=== PATIENT | male | born 1985 | race Caucasian/White ===

== ENCOUNTER → 2017-04-06 09:53 | Outpatient (CLI) | payer OTHER, SELFPAY ==
[2017-04-06 12:56] LABS: Anion Gap 9 (5-15); BUN 17 mg/dL (7-18); BUN/Creat Ratio 14.8 RATIO (10-20); Calcium,Total 9.4 mg/dL (8.5-10.1); Chloride 103 mmol/L (98-107); Cholesterol 116 mg/dL (200); Creatinine, Serum 1.15 mg/dL (0.70-1.30); EST Glomerular Filtration Rate 78 mL/min (>60); Est Glom Filt Rate - Afr Amer 95 mL/min (>60); Glucose 85 mg/dL (74-106); High Density Lipoprotein 47 mg/dL; Potassium 3.7 mmol/L (3.5-5.1); Sodium Level 141 mmol/L (136-145); Triglycerides 55 mg/dL; Very Low Density Lipoprotein 11 mg/dL (5-40)
== END ==
PROVIDERS: Family Provider Family Medicine; PCP Family Medicine; Visit Provider Internal Medicine
DX: Z00.00 Encounter for general adult medical examination without abnormal findings (principal)
CPT/HCPCS: 36415; 80048; 80061

== ENCOUNTER 2021-05-15 17:00 | Outpatient (CLI) | payer OTHER, SELFPAY ==
--- NOTE | 2021-05-15 17:03 | CT_ITS ---
STUDY: CT SOFT TISSUE NECK WITH CONTRAST REASON FOR EXAM: Male, 35 years old. 2 areas, right lateral neck and right lower mandible -- cervical lymphadenopathy RADIATION DOSAGE (If Supplied By Facility): CTDIvol = ( 16.62 ) mGy, DLP = ( 489.90 ) mGycm TECHNIQUE: The patient was scanned in a multi-detector CT scanner. High resolution transaxial imaging was performed following intravenous administration of IV 75mL Isovue-370. Sagittal and coronal images were reconstructed. Individualized dose optimization techniques were used for this CT. COMPARISON: None. FINDINGS: Normal bilateral parotid glands. Normal bilateral drawing frame tender spaces. Normal bilateral parapharyngeal spaces. Normal bilateral carotid spaces. Normal bilateral sublingual and submandibular glands and spaces. Normal visualized nasopharynx. Normal retropharyngeal space. Normal perivertebral space. Normal visualized bilateral faucial tonsils. The visualized tongue, tongue base and oropharynx are normal. The visualized cervical lymph nodes (levels I-) are within normal size limits, and maintain normal morphology. There is no demonstrated solid or cystic mass lesion. There is no abnormal contrast enhancement. Normal epiglottis, bilateral vallecula and hypopharynx. The pre-epiglottic and paraglottic adipose spaces are normal. Normal visualized bilateral piriform sinuses, aryepiglottic folds, vocal cords, and arytenoid-cricoid articulations. Normal subglottic trachea. Normal bilateral lobes of the thyroid gland. Normal visualized pulmonary apices. Normal visualized paranasal sinuses. Normal visualized cervical spine. CT/Soft Tissue Neck WITH Contrast IMPRESSION: Normal enhanced CT examination of the soft tissues of the neck. Electronically Signed: Rome Willingham MD at 10:54 EDT ,
== END 2021-05-15 23:59 | disposition home or self-care (01) ==
PROVIDERS: PCP Family Medicine; Referring Provider Nurse Practitioner Family; Visit Provider Nurse Practitioner Family
DX: R22.1 Localized swelling, mass and lump, neck (principal)
CPT/HCPCS: 70491; Q9967

== ENCOUNTER 2021-05-26 10:28 | Outpatient (CLI) | payer OTHER, SELFPAY ==
--- NOTE | 2021-05-26 10:35 | US_ITS ---
INDICATION: Mass in right lower mandible -- CERVICAL LYMPHODENOPATHY -- LOCALIZED SWELLING OF RT NECK EXAMINATION: Ultrasound US Head/Neck Soft Tissue TECHNIQUE: Beckwith scale and color doppler imaging was performed of the neck. COMPARISON: None. FINDINGS: Grayscale and color flow sonographic evaluation of the neck was performed. Initially sonographic evaluation of the area of palpable lump was performed this demonstrated a ovoid well-circumscribed area of homogenous echogenicity measuring 1.2 x 0.4 x 1.1 cm, this could represent a lipoma or an atypical lymph node. Two lymph nodes visualized in the right neck demonstrating unremarkable size and shape unremarkable configuration with fatty hilum, normal lymph nodes measuring 1.3 x 0.6 x 0.3 cm and 1.7 x 0.8 x 0.4 cm. Two lymph nodes visualized in the left neck demonstrating unremarkable size and shape unremarkable configuration with fatty hilum, normal lymph nodes measuring 1.3 x 0.8 x 0.4 cm and 1.4 x 0.8 x 0.3 cm. US/Head/Neck Soft Tissue IMPRESSION: At location of the palpable lump ovoid 1.2 cm area either representing lipoma or an typical lymph node. Normal appearing neck lymph nodes Electronically Signed: Waldo Allison MD at 12:46 EDT ,
== END 2021-05-26 23:59 | disposition home or self-care (01) ==
PROVIDERS: PCP Family Medicine; Referring Provider Nurse Practitioner Family; Visit Provider Nurse Practitioner Family
DX: R22.1 Localized swelling, mass and lump, neck (principal); R59.0 Localized enlarged lymph nodes
CPT/HCPCS: 76536

== ENCOUNTER → 2021-09-09 | Outpatient (CLI) | payer OTHER, SELFPAY ==
--- NOTE | 2021-09-09 10:45 | MASS_PTH ---
PATIENT: YOLANDA GRANADO LOC: [facility] U#:[id number] AGE/SX: 35/M ROOM: RE09/09/[address]: Dr. Vladimir Voss MD : 1985 BED: DIS: 09/09/2021 SPEC #: [id number] RECD: 09/09/21 15:00 STATUS: JEROME WALKER #: [id number] MAKSIM: 09/09/21 10:[address]: Vladimir Voss DEPT: SURGICAL PATHOLOGY RECD BY: Camila Rivero ENTERED: 09/10/21 07:09 SP TYPE: Mass OTHR DR: Dr. Silvio Alarcon, DO [facility] Tissues: Skin of face, NOS Procedures: Surgery Specimen Level IV HEADER OPERATION: Excision right facial mass PRE-OP DIAGNOSIS: Right facial mass TISSUE SUBMITTED: Right facial mass MICROSCOPIC DIAGNOSIS Right facial mass, excisional biopsy: Mature adipose tissue, consistent with lipoma. SJ:pavel 09/11/2021 MICROSCOPIC DESCRIPTION Slides are reviewed. GROSS DESCRIPTION Received in fixative is one container labeled with the patient's name and designated right neck mass. The specimen consists of an irregular fragment of yellow-pink fibrofatty tissue measuring 2.6 x 1.5 x 0.9 cm. The specimen is inked and serially sectioned to reveal homogenous yellow cut surfaces. The specimen is totally submitted in two cassettes. / URMILA:pavel 09/10/2021 TC:1 CPT: 79643
== END | disposition home or self-care (01) ==
LOC: LABSPEC 15:31
PROVIDERS: PCP Family Medicine; Visit Provider Otolaryngology
DX: R22.0 Localized swelling, mass and lump, head (principal)
CPT/HCPCS: 88305

== ENCOUNTER → 2021-12-03 | Outpatient (CLI) | payer OTHER, SELFPAY ==
[2021-12-03 12:26] LABS: Absolute Lymphocyte Count 1.58 X10^3/uL (0.83-4.51); Absolute Neutrophil Count 2.2 X10^3/uL (2.0-7.7); Basophil# 0.02 X10^3/uL; Basophil% 0.4 % (0-1); Eosinophil# 0.11 X10^3/uL; Eosinophils% 2.4 % (0-5); Hematocrit 42.4 % (40-54); Lymphocyte # 1.58 X10^3/ul (0.83-4.51); Lymphocyte % 34.4 % (19-41); Mean Corp Hgb Conc 35.4 g/dL (32-36); Mean Corpuscular Volume 90.4 fL (80-94); Mean Platelet Vol. 10.6 fl (6.2-12.0); Monocyte# 0.72 X10^3/uL; Monocyte% 15.7 % (0-10); NRBC Flagged by Analyzer 0 % (0-5); Neutrophil # 2.15 X10^3/uL (2.7-7.7); Neutrophil % 46.9 % (47-70); Platelet Count 216 K/mm3 (150-450); RBC Distribution Width CV 11.9 % (11.6-14.6); RBC Distribution Width SD 39.3 fl (35.1-43.9); Red Blood Count 4.69 M/mm3 (4.6-6.2); White Blood Count 4.6 K/mm3 (4.4-11.0)
[2021-12-03 12:39] LABS: ALB/GLOB Ratio 1.2 RATIO (0.9-2.4); AST(SGOT) 21 U/L (15-37); Alanine Aminotransfer ALT/SGPT 24 U/L (16-61); Albumin, Serum 3.9 g/dL (3.2-5.0); Alkaline Phosphatase 57 U/L (45-117); Anion Gap 6 (5-15); BUN 26 mg/dL (7-18); BUN/Creat Ratio 20.8 RATIO (10-20); Calcium,Total 9.4 mg/dL (8.5-10.1); Chloride 106 mmol/L (98-107); Cholesterol 166 mg/dL (200); Creatinine, Serum 1.25 mg/dL (0.70-1.30); EST Glomerular Filtration Rate 69 mL/min (>60); Est Glom Filt Rate - Afr Amer 84 mL/min (>60); Globulin 3.2 g/dL (2.2-4.2); Glucose 104 mg/dL (74-106); High Density Lipoprotein 50 mg/dL; Potassium 4.3 mmol/L (3.5-5.1); Protein, Total 7.1 g/dL (6.4-8.2); Sodium Level 140 mmol/L (136-145); Triglycerides 68 mg/dL; Very Low Density Lipoprotein 14 mg/dL (5-40)
== END | disposition home or self-care (01) ==
LOC: BIMLAB 09:43
PROVIDERS: PCP Family Medicine; Referring Provider Nurse Practitioner Family; Visit Provider Nurse Practitioner Family
DX: Z00.00 Encounter for general adult medical examination without abnormal findings (principal)
CPT/HCPCS: 36415; 80053; 80061; 84443; 85025

== ENCOUNTER → 2022-05-28 | Outpatient (CLI) | payer OTHER, SELFPAY ==
[2022-05-28 12:08] LABS: Absolute Lymphocyte Count 1.92 X10^3/uL (0.83-4.51); Absolute Neutrophil Count 2.6 X10^3/uL (2.0-7.7); Basophil# 0.02 X10^3/uL; Basophil% 0.4 % (0-1); Eosinophil# 0.12 X10^3/uL; Eosinophils% 2.2 % (0-5); Hematocrit 40.7 % (40-54); Hemoglobin 13.9 g/dL (13.0-16.5); Lymphocyte # 1.92 X10^3/ul (0.83-4.51); Lymphocyte % 35.8 % (19-41); Mean Corp Hgb Conc 34.2 g/dL (32-36); Mean Corpuscular Hgb 31.2 pg (27.0-32.0); Mean Corpuscular Volume 91.3 fL (80-94); Mean Platelet Vol. 10.6 fl (6.2-12.0); Monocyte# 0.65 X10^3/uL; Monocyte% 12.1 % (0-10); NRBC Flagged by Analyzer 0 % (0-5); Neutrophil # 2.64 X10^3/uL (2.7-7.7); Neutrophil % 49.3 % (47-70); Platelet Count 217 K/mm3 (150-450); RBC Distribution Width CV 12.2 % (11.6-14.6); RBC Distribution Width SD 40.7 fl (35.1-43.9); Red Blood Count 4.46 M/mm3 (4.6-6.2); White Blood Count 5.4 K/mm3 (4.4-11.0)
[2022-05-28 12:24] LABS: Vitamin B12 1422 pg/mL (211-911); Vitamin D,25 Hydroxy 39.5 ng/mL
[2022-05-28 12:35] LABS: ALB/GLOB Ratio 1.4 RATIO (0.9-2.4); AST(SGOT) 29 U/L (15-37); Alanine Aminotransfer ALT/SGPT 27 U/L (16-61); Alkaline Phosphatase 49 U/L (45-117); Anion Gap 0 (5-15); BUN 25 mg/dL (7-18); BUN/Creat Ratio 20.7 RATIO (10-20); Calcium,Total 9.4 mg/dL (8.5-10.1); Chloride 106 mmol/L (98-107); Cholesterol 169 mg/dL (200); Creatinine, Serum 1.21 mg/dL (0.70-1.30); EST Glomerular Filtration Rate 72 mL/min (>60); Est Glom Filt Rate - Afr Amer 87 mL/min (>60); Globulin 2.8 g/dL (2.2-4.2); Glucose 101 mg/dL (74-106); High Density Lipoprotein 63 mg/dL; Potassium 3.9 mmol/L (3.5-5.1); Protein, Total 6.8 g/dL (6.4-8.2); Sodium Level 137 mmol/L (136-145); Thyroid Stim Hormone (TSH) 0.78 uIU/mL (0.358-3.74); Triglycerides 36 mg/dL; Very Low Density Lipoprotein 7 mg/dL (5-40)
== END | disposition home or self-care (01) ==
LOC: BIMLAB 09:40
PROVIDERS: PCP Family Medicine; Referring Provider Nurse Practitioner Family; Visit Provider Nurse Practitioner Family
DX: Z00.00 Encounter for general adult medical examination without abnormal findings (principal); E56.9 Vitamin deficiency, unspecified
CPT/HCPCS: 36415; 80053; 80061; 82306; 82607; 84443; 85025

== ENCOUNTER → 2023-01-22 | Outpatient (CLI) | payer OTHER, SELFPAY ==
--- NOTE | 2023-01-22 13:12 | VAS_PTH ---
PATIENT: YOLANDA GRANADO [facility] U#:[id number] AGE/SX: 37/M ROOM: RE01/22/[address]: Dr. Juvencio Abraham MD : 1985 BED: DIS: 01/22/2023 SPEC #: [id number] RECD: 01/22/23 13:29 STATUS: JEROME REMati #: [id number] MAKSIM: 01/22/23 13:[address]: Juvencio Abraham DEPT: SURGICAL PATHOLOGY RECD BY: Marlen Frances ENTERED: 01/22/23 13:51 SP TYPE: VAS OTHR DR: Dr. Silvio Alarcon, DO Tissues: A - Vas deferens, NOS B - Vas deferens, NOS Procedures: Surgery Specimen Level II HEADER OPERATION: Bilateral partial vasectomy PRE-OP DIAGNOSIS: Sterilization TISSUE SUBMITTED: A - Right vas deferens, B - Left vas deferens MICROSCOPIC DIAGNOSIS A. Right vas deferens, segmental vasectomy: Complete cross-section of vas deferens with no pathologic change. B. Left vas deferens, segmental vasectomy: Complete cross-section of vas deferens with no pathologic change. AM:pavel 01/26/2023 MICROSCOPIC DESCRIPTION Slides are reviewed. GROSS DESCRIPTION A - Received is one container designated right vas deferens. The specimen consists of a cylindrical segment of pink-irene soft tissue measuring 0.6 cm in length and 0.2 cm in maximum diameter. The specimen is serially sectioned and totally submitted in one cassette. B - Received is one container designated left vas deferens. The specimen consists of a cylindrical segment of pink-irene soft tissue measuring 0.8 cm in length and 0.2 cm in maximum diameter. The specimen is serially sectioned and totally submitted in one cassette. / AM:pavel 01/22/2023 TC:4 CPT: 27819 x2
== END | disposition home or self-care (01) ==
LOC: LABSPEC 13:35
PROVIDERS: PCP Family Medicine; Referring Provider Surgery; Visit Provider Surgery
DX: Z30.2 Encounter for sterilization (principal)
CPT/HCPCS: 88302

== ENCOUNTER → 2023-03-08 | Outpatient (CLI) | payer OTHER, SELFPAY ==
--- NOTE | 2023-03-08 | CYSPIN_PTH ---
PATHOLOGY RESULTS PATIENT: YOLANDA GRANADO LOC: [facility] U#:[id number] AGE/SX: 37/M ROOM: RE03/08/[address]: Dr. Juvencio Abraham MD : 1985 BED: DIS: 03/08/2023 SPEC #: [id number] RECD: 03/08/23 11:11 STATUS: JEROME REMati #: [id number] MAKSIM: 03/08/23 00:[address]: Juvencio Abraham DEPT: CYTOLOGY RECD BY: Prosper Bacon ENTERED: 03/08/23 11:11 SP TYPE: CYSPIN FL OTHR DR: Dr. Silvio Alarcon, DO Tissues: Cytologic material, NOS Procedures: Pap Stain (control) Special Stain Group II Cytospin Fluid HEADER OPERATION: Post vasectomy PRE-OP DIAGNOSIS: Vasectomy status TISSUE SUBMITTED: Semen fluid for analysis DIAGNOSIS CYTOLOGY Semen fluid for analysis (cytospin): No evidence of spermatozoa. AM:pavel 03/08/2023 CYTOLOGY STUDY Slides are reviewed. CYTOLOGY GROSS Received is 1 ml of thick cloudy fluid labeled with the patient's name and and designated per the requisition as semen. Submitted for cytology preparation. / pavel 03/08/2023 TC:5 CPT: 83757
--- OUTSIDE RECORDS SUMMARY | 2023-03-08 11:14 | XMS RPT_ITS | CCD ---
Author Name Unknown Address [address] [place] [address] Organization [facility] Results Test Name Value Interpretation Reference Range Facil ity Summary Purpose Family History No Family History Records Found Advance Directives No Advanced Directives Records Found Additional Source Comments (unrecognized sect ion and content) No Status Records Found INFORMATION SOURCE (unrecogn ized section and content) FOR RECORDS PERTAINING TO PATIENTS WHO ARE OR HAVE BEEN ENROLLED IN A CHEMICAL DEPENDENCY/SUBSTANCEABUSE PROGRAM, SOME INFORMATION MAY BE OMITTED. This clinical summary was aggregated from multiple sources. Caution should be exercised in using it in the provision of clinical care. This summary normalizes information from multiple sources, and as a consequence, information in this document may materially change the coding, format and clinical context of patient data. In addition, data may be omitted in some cases. CLINICAL DECISIONS SHOULD BE BASED ON THE PRIMARY CLINICAL RECORDS. [employer] provides no warranty or guarantee of the accuracy or completeness of information in this document.
[2023-03-08 15:39] LABS: Cytology, Semen SEE PATHOLOGY REPORT
== END | disposition home or self-care (01) ==
LOC: LABSPEC 10:44
PROVIDERS: PCP Family Medicine; Referring Provider Surgery; Visit Provider Surgery
DX: Z30.2 Encounter for sterilization (principal)
CPT/HCPCS: 88108; 88313; 89321

== ENCOUNTER → 2023-03-12 | Outpatient (CLI) | payer OTHER, SELFPAY ==
--- NOTE | 2023-03-12 | CYSPIN_PTH ---
PATHOLOGY RESULTS PATIENT: YOLANDA GRANADO [facility] U#:[id number] AGE/SX: 37/M ROOM: RE03/12/[address]: Dr. Juvencio Abraham MD : 1985 BED: DIS: 03/12/2023 SPEC #: [id number] RECD: 03/12/23 13:06 STATUS: JEROME AARON #: [id number] MAKSIM: 03/12/23 00:[address]: Juvencio Abraham DEPT: CYTOLOGY RECD BY: Pari Bradford ENTERED: 03/12/23 13:08 SP TYPE: CYSPIN FL OTHR DR: Dr. Silvio Alarcon, DO Tissues: Cytologic material, NOS Procedures: Pap Stain (control) Special Stain Group II Cytospin Fluid HEADER OPERATION: Post vasectomy PRE-OP DIAGNOSIS: Vasectomy status TISSUE SUBMITTED: Seminal fluid for analysis DIAGNOSIS CYTOLOGY Seminal fluid for analysis (cytospin): No evidence of spermatozoa. AM:pavel 03/15/2023 CYTOLOGY STUDY Slides are reviewed. CYTOLOGY GROSS Received is 3 ml of whitish opaque cloudy fluid labeled with the patient's name and and designated per the requisition as semen. Submitted for cytology preparation including cell block. / pavel 03/12/2023 TC:5 CPT: 81646
[2023-03-12 12:44] LABS: Cytology, Semen SEE PATHOLOGY REPORT
--- OUTSIDE RECORDS SUMMARY | 2023-03-12 15:40 | XMS RPT_ITS | CCD ---
Author Name Unknown Address [address] [place] [address] Organization [facility] Results Test Name Value Interpretation [...] BE BASED ON THE PRIMARY CLINICAL RECORDS. [employer] provides no warranty or guarantee of the accuracy or completeness of information in this document.
== END | disposition home or self-care (01) ==
LOC: LABSPEC 12:27
PROVIDERS: PCP Family Medicine; Referring Provider Surgery; Visit Provider Surgery
DX: Z30.2 Encounter for sterilization (principal)
CPT/HCPCS: 88108; 88313

== ENCOUNTER → 2023-04-28 | Outpatient (CLI) | payer OTHER, SELFPAY ==
--- NOTE | 2023-04-28 14:21 | US_ITS ---
STUDY: SCROTUM ULTRASOUND REASON FOR EXAM: Male, 37 years old. Scrotal pain. Prior vasectomy. TECHNIQUE: Ultrasound evaluation of the scrotum was performed with color Doppler and static dougherty-scale imaging. COMPARISON: None. FINDINGS: RIGHT TESTICLE INTRATESTICULAR: There is a normal size of the right testicle. The right testicle measures 4.4 cm x 4.2 cm x 2.7 cm. There is a homogenous echotexture. There is normal arterial and normal venous vascularity. There is no demonstrated right testicular mass or cyst. EXTRATESTICULAR: The epididymis is normal in size. The epididymis head measures 1.9 cm x 0.9 cm x 1 cm. There is normal vascularity of the epididymis. There is no demonstrated epididymal cystic structure. There is no demonstrated hydrocele. There is no demonstrated varicocele. There is no demonstrated extratesticular mass or cyst. LEFT TESTICLE INTRATESTICULAR: There is a normal size of the left testicle. The left testicle measures 4.1 cm x 3.7 cm x 2.6 cm. There is a homogenous echotexture. There is normal arterial and normal venous vascularity. There is no demonstrated left testicular mass or cyst. EXTRATESTICULAR: The epididymis is normal in size. The epididymis head measures 0.8 cm x 1.3 cm x 0.8 cm. There is normal vascularity of the epididymis. There is no demonstrated epididymal cystic structure. There is no demonstrated hydrocele. There is no demonstrated varicocele. There is no demonstrated extratesticular mass or cyst. US/Testicular with Arterial Flow IMPRESSION: Normal bilateral testicles. Electronically Signed: Rome Willingham MD at 15:37 EDT ,
== END | disposition home or self-care (01) ==
PROVIDERS: PCP Family Medicine; Referring Provider Surgery; Visit Provider Surgery
DX: N50.82 Scrotal pain (principal)
CPT/HCPCS: 76870; 93976